=== PATIENT | female | born 1955 | race Caucasian/White ===

== ENCOUNTER → 2016-07-11 | Outpatient (CLI) | payer BC ==
--- NOTE | 2016-07-11 15:20 | BD ---
EXAMINATION TYPE: MG DEXA axial skeleton. DATE OF EXAM: 07/11/2016 3:07 PM COMPARISON: 03.17.2014 DEXA bone scan. CLINICAL HISTORY: M89.9 KNOWN OSTEOPENIA Height: 63 Weight: 141 FRAX RISK QUESTIONS: Alcohol (3 or more units per day): NO Family History (Parent hip fracture): NO Glucocorticoids (More than 3mos): NO (Ex: prednisone, prednisolone, methylprednisolone, dexamethasone, and hydrocortisone). History of Fracture in Adulthood: NO Secondary Osteoporosis: NO 1. Type 1 Diabetes: NO 2. Hyperthyroidism: NO 3. Menopause before 45: NO 4. Malnutrition: NO 5. Chronic liver disease: NO Rheumatoid Arthritis: NO Current Tobacco Use: NO RISK FACTORS HISTORY OF: Family History of Osteoporosis: YES MOTHER, Drink Alcohol: SOCIAL Active: YES Diet low in dairy products/other sources of calcium: NO Postmenopausal woman: YES AT AGE 49 Take estrogen and/or progesterone medications: NONE NOW Adrenal Insufficiency: NO MEDICATIONS: Additional Medications: CALCIUM AND VIT D, Additional History: NONE TO NOTE EXAM MEASUREMENTS: Bone mineral densitometry was performed using the [employer] System. Bone mineral density as measured about the Lumbar spine is: ----- L1-L4(G/cm2): 1.057 T Score Values are as follows: ----- L1: -1.3 ----- L2: -1.2 ----- L3: -0.7 ----- L4: -1.1 ----- L1-L4: -1.0 Bone mineral density has: Decreased -1.8% since study of: 03.17.2014 Bone mineral density about the R hip (g/cm2): 0.930 Bone mineral density about the L hip (g/cm2): 0.911 T Score values are as follows: -----R Neck: -0.8 -----L Neck: -0.9 -----R Intertrochanter: -0.8 -----L Intertrochanter: -1.3 Bone mineral density has: Decreased -0.6% since study of: 03.17.2014 FRAX %'S: 7.5% FOR MAJOR OSTEOPOROTIC FX AND 0.4% FOR HIP FX.....PROBABILITY OF FX IN 10 YRS TI ME IMPRESSION: Osteopenia (T Score between -2.5 and -1 as noted by T score values overall at 2 consecutive levels in the low back. Bone density fairly stable from prior. There is slightly increased risk of fracture an d the patient may be considered for treatment. Re-Screen 1-2 years. NOTE: T-SCORE=SD OF THE YOUNG ADULT MEAN.
--- NOTE | 2016-07-12 10:27 | MM ---
Reason for exam: screening (asymptomatic). Last mammogram was performed 1 year and 3 months ago. History: Patient is postmenopausal and is nulliparous. Family history of breast cancer in grandmother at age 80. Benign right US cyst aspiration of the right breast, October 06, 2008. Benign right US cyst aspiration ea add of the right breast, November 15, 2007. Benign right US cyst aspiration ea add of the right breast, November 15, 2007. Benign left US cyst aspiration of the left breast, November 15, 2007. Benign right US cyst aspiration of the right breast, November 15, 2007. Benign cyst aspiration of the right breast, June 28, 2006. Benign cyst aspiration of the right breast, June 01, 2005. Benign stereotactic core biopsy of the left breast, June 30, 2002. Benign cyst aspiration of the right breast, 1994. Took hormonal contraceptives for 13 years beginning at age 24. Physical Findings: A clinical breast exam by your physician is recommended on an annual basis and results should be correlated with mammographic findings. MG Screening Mammo w CAD Bilateral CC and MLO view(s) were taken. Prior study comparison: April 07, 2015, right breast MG 3d work up w/cad RT. April 05, 2015, bilateral MG screening mammo w CAD. The breast tissue is extremely dense which could obscure a lesion on mammography. Finding: There are typically benign calcifications in both breasts. Previous mammotome biopsy in the right and left breast. No significant changes in finding since April 07, 2015 and April 05, 2015. ASSESSMENT: Benign, BI-RAD 2 RECOMMENDATION: Routine screening mammogram of both breasts in 1 year.
== END | disposition home or self-care (01) ==
LOC: RADMAMWWP 14:28
PROVIDERS: ATTEND Obstetrics & Gynecology
DX: Z12.31 Encounter for screening mammogram for malignant neoplasm of breast (principal); M85.80 Other specified disorders of bone density and structure, unspecified site
CPT/HCPCS: 77080; G0202

== ENCOUNTER → 2017-08-02 | Outpatient (CLI) | payer BC ==
--- NOTE | 2017-08-03 11:11 | MM ---
Reason for exam: screening (asymptomatic). Last mammogram was performed 1 year and 1 month ago. History: Patient is postmenopausal and is nulliparous. Family history of breast cancer in grandmother at age 80. Benign right US cyst aspiration of the right breast, October 06, 2008. Benign right US cyst aspiration ea add of the right breast, November 15, 2007. Benign right US cyst aspiration ea add of the right breast, November 15, 2007. Benign left US cyst aspiration of the left breast, November 15, 2007. Benign right US cyst aspiration of the right breast, November 15, 2007. Benign cyst aspiration of the right breast, June 28, 2006. Benign cyst aspiration of the right breast, June 01, 2005. Benign stereotactic core biopsy of the left breast, June 30, 2002. Benign cyst aspiration of the right breast, 1994. Took hormonal contraceptives for 13 years beginning at age 24. Physical Findings: A clinical breast exam by your physician is recommended on an annual basis and results should be correlated with mammographic findings. MG Screening Mammo w CAD Bilateral CC and MLO view(s) were taken. Prior study comparison: July 11, 2016, bilateral MG screening mammo w CAD. April 07, 2015, right breast MG 3d work up w/cad RT. The breast tissue is heterogeneously dense. This may lower the sensitivity of mammography. Previous mammotome biopsy in the right breast x 2 and the left breast x 2. No significant changes when compared with prior studies. ASSESSMENT: Benign, BI-RAD 2 RECOMMENDATION: Routine screening mammogram of both breasts in 1 year.
== END ==
LOC: RADMAMWWP 12:28
PROVIDERS: ATTEND Obstetrics & Gynecology
DX: Z12.31 Encounter for screening mammogram for malignant neoplasm of breast (principal)
CPT/HCPCS: 77067

== ENCOUNTER → 2018-12-20 | Outpatient (CLI) | payer BC ==
--- NOTE | 2018-12-20 17:44 | BD ---
EXAMINATION TYPE: Axial Bone Density DATE OF EXAM: 12/20/2018 COMPARISON: NONE CLINICAL HISTORY: Height: Weight: FRAX RISK QUESTIONS: Alcohol (3 or more units per day): no Family History (Parent hip fracture): no Glucocorticoids (More than 3mos): no (Ex: prednisone, prednisolone, methylprednisolone, dexamethasone, and hydrocortisone). History of Fracture in Adulthood: no Secondary Osteoporosis: 1. Type 1 Diabetes: no 2. Hyperthyroidism: no 3. Menopause before 45: no 4. Malnutrition: no 5. Chronic liver disease: no Rheumatoid Arthritis: no Current Tobacco Use: no RISK FACTORS HISTORY OF: Family History of Osteoporosis: yes Active: yes Diet low in dairy products/other sources of calcium: no Postmenopausal woman: 49 years old MEDICATIONS: none Additional History: EXAM MEASUREMENTS: Bone mineral densitometry was performed using the [email or web address] System. Bone mineral density as measured about the Lumbar spine is: ----- L1-L4(G/cm2): 1.057 T Score Values are as follows: ----- L2: -0.8 ----- L3: -0.6 ----- L4: -1.3 ----- L1-L4: -1.0 Bone mineral density has: increased 0.5 % since study of: 07.11.2016 Bone mineral density about the R hip (g/cm2): 0.874 Bone mineral density about the L hip (g/cm2): 0.854 T Score values are as follows: -----R Neck: -1.2 -----L Neck: -1.3 -----R Total: -0.4 -----L Total: -0.8 Bone mineral density has: decreased -1.1 % since study of: 07.11.2016 IMPRESSION: Osteopenia (T Score between -2.5 and -1). There is slightly increased risk of fracture and the patient may be considered for treatment. Re-Screen 2-5 years. NOTE: T-SCORE=SD OF THE YOUNG ADULT MEAN.
--- NOTE | 2018-12-23 15:01 | MM ---
Reason for exam: screening (asymptomatic). Last mammogram was performed 1 year and 5 months ago. History: Patient is postmenopausal and is nulliparous. Family history of breast cancer in grandmother at age 80. Benign right US cyst aspiration of the right breast, October 06, 2008. Benign right US cyst aspiration ea add of the right breast, November 15, 2007. Benign right US cyst aspiration ea add of the right breast, November 15, 2007. Benign left US cyst aspiration of the left breast, November 15, 2007. Benign right US cyst aspiration of the right breast, November 15, 2007. Benign cyst aspiration of the right breast, June 28, 2006. Benign cyst aspiration of the right breast, June 01, 2005. Benign stereotactic core biopsy of the left breast, June 30, 2002. Benign cyst aspiration of the right breast, 1994. Took hormonal contraceptives for 13 years beginning at age 24. Physical Findings: A clinical breast exam by your physician is recommended on an annual basis and results should be correlated with mammographic findings. MG Screening Mammo w CAD Bilateral CC and MLO view(s) were taken. Prior study comparison: August 02, 2017, bilateral MG screening mammo w CAD. July 11, 2016, bilateral MG screening mammo w CAD. The breast tissue is heterogeneously dense. This may lower the sensitivity of mammography. Previous mammotome biopsy in the right and left breast. No significant changes when compared with prior studies. ASSESSMENT: Benign, BI-RAD 2 RECOMMENDATION: Routine screening mammogram of both breasts in 1 year.
== END | disposition home or self-care (01) ==
LOC: RADMAMWWP 12:46
PROVIDERS: ATTEND Obstetrics & Gynecology
DX: Z12.31 Encounter for screening mammogram for malignant neoplasm of breast (principal); M85.851 Other specified disorders of bone density and structure, right thigh; M85.852 Other specified disorders of bone density and structure, left thigh
CPT/HCPCS: 77067; 77080

== ENCOUNTER → 2020-02-10 | Outpatient (CLI) | payer MEDICARE, OTHER ==
--- NOTE | 2020-02-11 11:44 | MM ---
Reason for exam: screening (asymptomatic). Last mammogram was performed 1 year and 2 months ago. History: Patient is postmenopausal and is nulliparous. Family history of breast cancer in grandmother at age 80. Benign right US cyst aspiration of the right breast, October 06, 2008. Benign right US cyst aspiration ea add of the right breast, November 15, 2007. Benign right US cyst aspiration ea add of the right breast, November 15, 2007. Benign left US cyst aspiration of the left breast, November 15, 2007. Benign right US cyst aspiration of the right breast, November 15, 2007. Benign cyst aspiration of the right breast, June 28, 2006. Benign cyst aspiration of the right breast, June 01, 2005. Benign stereotactic core biopsy of the left breast, June 30, 2002. Benign cyst aspiration of the right breast, 1994. Took hormonal contraceptives for 13 years beginning at age 24. Physical Findings: A clinical breast exam by your physician is recommended on an annual basis and results should be correlated with mammographic findings. MG 3D Screening Mammo W/Cad Bilateral CC and MLO view(s) were taken. Prior study comparison: December 20, 2018, bilateral MG screening mammo w CAD. August 02, 2017, bilateral MG screening mammo w CAD. The breast tissue is extremely dense which could obscure a lesion on mammography. Stable benign calcifications. There is chronic nodularity bilaterally. No significant changes when compared with prior studies. ASSESSMENT: Benign, BI-RAD 2 RECOMMENDATION: Routine screening mammogram of both breasts in 1 year.
== END | disposition home or self-care (01) ==
LOC: RADMAMWWP 09:56
PROVIDERS: ATTEND Obstetrics & Gynecology
DX: Z12.31 Encounter for screening mammogram for malignant neoplasm of breast (principal); Z80.3 Family history of malignant neoplasm of breast
CPT/HCPCS: 77063; 77067

== ENCOUNTER → 2020-07-21 | Outpatient (CLI) | payer MEDICARE ==
--- NOTE | 2020-07-21 16:15 | NM ---
EXAMINATION TYPE: NM hepatobiliary w EF DATE OF EXAM: 07/21/2020 COMPARISON: NONE INDICATION: Reflux epigastric pain TECHNIQUE: After the intravenous administration of 4.88 mCi Tc 99m Mebrofenin hepatobiliary scintigra phy is performed. Images were obtained immediately post injection. FINDINGS: There is prompt uptake and excretion of radiotracer by the liver. Extrahepatic ducts are identified at 10 minutes. The gallbladder is visualized within 8 minutes. Small bowel activity is noted within 46 minutes. At one hour 8 ounces of oral ensure plus is given to mimic CCK and gallbladder ejection fraction is c alculated at 70 %, which is in the normal range. (Normal >35% and <80%.). IMPRESSION: 1. Normal hepatobiliary scan
== END | disposition home or self-care (01) ==
LOC: RADNMMAIN 06:48
PROVIDERS: ATTEND Family Medicine
DX: R10.11 Right upper quadrant pain (principal)
CPT/HCPCS: 78226; A9537

== ENCOUNTER → 2021-05-11 | Outpatient (CLI) | payer MEDICARE ==
--- NOTE | 2021-05-11 10:44 | BD ---
EXAMINATION TYPE: Axial Bone Density DATE OF EXAM: 05/11/2021 COMPARISON: Prior DEXA bone scan 2018 CLINICAL HISTORY: Postmenopausal female with osteopenia. Height: 63.5 Weight: 137.2 FRAX RISK QUESTIONS: Alcohol (3 or more units per day): no Family History (Parent hip fracture): no Glucocorticoids (More than 3mos): no (Ex: prednisone, prednisolone, methylprednisolone, dexamethasone, and hydrocortisone). History of Fracture in Adulthood: no Secondary Osteoporosis: 1. Type 1 Diabetes: no 2. Hyperthyroidism: no 3. Menopause before 45: no 4. Malnutrition: no 5. Chronic liver disease: no Rheumatoid Arthritis: no Current Tobacco Use: no RISK FACTORS HISTORY OF: Surgery to Spine/Hip(right/left)/Wrist (right/left): no Family History of Osteoporosis: yes Active: yes Diet low in dairy products/other sources of calcium: no Postmenopausal woman: yes Lost more than 2 inches in height since high school: no MEDICATIONS: none Additional History: EXAM MEASUREMENTS: Bone mineral densitometry was performed using the [place] System. Bone mineral density as measured about the Lumbar spine is: ----- L1-L4(G/cm2): 1.029 T Score Values are as follows: ----- L2: -1.4 ----- L3: -1.1 ----- L4: -1.2 ----- L1-L4: -1.3 Bone mineral density has: decreased -3.1 % since study of: 12.20.2018 Bone mineral density about the R hip (g/cm2): 0.864 Bone mineral density about the L hip (g/cm2): 0.865 T Score values are as follows: -----R Neck: -1.3 -----L Neck: -1.2 -----R Total: -0.5 -----L Total: -0.9 Bone mineral density has: decreased -1.3 % since study of: 12.20.2018 IMPRESSION: Osteopenia (T Score between -2.5 and -1) remains present. There remains slightly increased risk of fracture and the patient may be considered for treatment. Re-Screen 2-5 years. NOTE: T-SCORE=SD OF THE YOUNG ADULT MEAN.
--- NOTE | 2021-05-12 15:19 | MM ---
Reason for exam: screening (asymptomatic). Last mammogram was performed 1 year and 3 months ago. History: Patient is postmenopausal and is nulliparous. Family history of breast cancer in grandmother at age 80. Benign right US cyst aspiration of the right breast, October 06, 2008. Benign right US cyst aspiration ea add of the right breast, November 15, 2007. Benign right US cyst aspiration ea add of the right breast, November 15, 2007. Benign left US cyst aspiration of the left breast, November 15, 2007. Benign right US cyst aspiration of the right breast, November 15, 2007. Benign cyst aspiration of the right breast, June 28, 2006. Benign cyst aspiration of the right breast, June 01, 2005. Benign stereotactic core biopsy of the left breast, June 30, 2002. Benign cyst aspiration of the right breast, 1994. Took hormonal contraceptives for 13 years beginning at age 24. Physical Findings: A clinical breast exam by your physician is recommended on an annual basis and results should be correlated with mammographic findings. MG 3D Screening Mammo W/Cad Bilateral CC and MLO view(s) were taken. Prior study comparison: February 10, 2020, bilateral MG 3d screening mammo w/cad. December 20, 2018, bilateral MG screening mammo w CAD. The breast tissue is heterogeneously dense. This may lower the sensitivity of mammography. Finding #1: There is a 16mm and 14 mm obscured oval mass in the slight upper outer quadrant, posterior middle position. Finding #2: There are typically benign vascular, round calcifications in the right breast. Previous mammotome biopsy in the right breast x 3 and left breast. There is a chronic nodularity bilaterally. New finding and increase in size since February 10, 2020. ASSESSMENT: Incomplete: need additional imaging evaluation, BI-RAD 0 RECOMMENDATION: Ultrasound of the right breast. [facility] will attempt to contact patient to return for ultrasound.
== END | disposition home or self-care (01) ==
LOC: RADMAMWWP 08:55
PROVIDERS: ATTEND Obstetrics & Gynecology
DX: Z12.31 Encounter for screening mammogram for malignant neoplasm of breast (principal); Z13.820 Encounter for screening for osteoporosis; Z80.3 Family history of malignant neoplasm of breast; M85.80 Other specified disorders of bone density and structure, unspecified site; Z78.0 Asymptomatic menopausal state
CPT/HCPCS: 77063; 77067; 77080

== ENCOUNTER → 2021-05-23 | Outpatient (CLI) | payer MEDICARE ==
--- NOTE | 2021-05-23 09:16 | USB ---
Reason for exam: additional evaluation requested from abnormal screening. History: Patient is postmenopausal and is nulliparous. Family history of breast cancer in grandmother at age 80. Benign right US cyst aspiration of the right breast, October 06, 2008. Benign right US cyst aspiration ea add of the right breast, November 15, 2007. Benign right US cyst aspiration ea add of the right breast, November 15, 2007. Benign left US cyst aspiration of the left breast, November 15, 2007. Benign right US cyst aspiration of the right breast, November 15, 2007. Benign cyst aspiration of the right breast, June 28, 2006. Benign cyst aspiration of the right breast, June 01, 2005. Benign stereotactic core biopsy of the left breast, June 30, 2002. Benign cyst aspiration of the right breast, 1994. Took hormonal contraceptives for 13 years beginning at age 24. Physical Findings: Nurse Summary: palpable lump (nurse dw). US Breast Workup Limited RT Right limited breast ultrasound including focal area of concern, retroareolar and axilla demonstrates a 1.3 x 1.5 x 0.6cm oval, cystic lesion at 9 o'clock, a 1.7 x 1.6 x 0.8cm oval, cystic lesion at 10 o'clock and a 0.7 x 0.6 x 0.6cm oval, mixed lesion at 11 o'clock, likely debris filled cyst. These results were verbally communicated with the patient and result sheet given to the patient on 05/23/21. ASSESSMENT: Probably benign, BI-RAD 3 RECOMMENDATION: Follow-up diagnostic mammogram of the right breast in 6 months.
== END | disposition home or self-care (01) ==
LOC: RADUSWWP 08:10
PROVIDERS: ATTEND Obstetrics & Gynecology
DX: R92.8 Other abnormal and inconclusive findings on diagnostic imaging of breast (principal)

== ENCOUNTER → 2021-11-22 | Outpatient (CLI) | payer MEDICARE ==
--- NOTE | 2021-11-22 09:48 | MM ---
Reason for Exam: Follow-up at short interval from prior study. Last screening mammogram was performed 6 month(s) ago. Patient History: Menarche at age 14. Patient has no children. Postmenopausal. Hormonal Contraceptives for 13 years from age 24 until age 37. 06/28/2006, Benign Cyst Aspiration on the right side. 06/01/2005, Benign Cyst Aspiration on the right side. 1994, Benign Cyst Aspiration on the right side. 10/06/2008, Benign Cyst Aspiration on the right side. 11/15/2007, Benign Cyst Aspiration on the left side. 11/15/2007, Benign Cyst Aspiration on the right side. 11/15/2007, Benign Cyst Aspiration on the right side. 11/15/2007, Benign Cyst Aspiration on the right side. 06/30/2002, Benign Stereotactic Core Biopsy on the left side. Maternal grandmother had breast cancer, age 80. Risk Values: Edna 5 year model risk: 2.0%. NCI Lifetime model risk: 6.9%. Prior Study Comparison: 12/20/2018 Bilateral Screening Mammogram, [facility]. 02/10/2020 Bilateral Screening Mammogram, [facility]. 05/11/2021 Bilateral Screening Mammogram, [facility]. Tissue Density: Right: The breast tissue is heterogeneously dense. This may lower the sensitivity of mammography. Findings: Analyzed By CAD. Chronic nodularity in the right breast stable. Biopsy clip marker noted. There are benign-appearing calcifications. Overall Assessment: Benign, BI-RAD 2 Management: Screening Mammogram of both breasts in 6 months. A clinical breast exam by your physician is recommended on an annual basis and results should be correlated with mammographic findings. This exam should not preclude additional follow-up of suspicious palpable abnormalities. Results were given to the patient verbally at the time of exam. Electronically signed and approved by: Efrain Dockery M.D. Radiologis
== END | disposition home or self-care (01) ==
LOC: RADMAMWWP 09:20
PROVIDERS: ATTEND Obstetrics & Gynecology
DX: R92.8 Other abnormal and inconclusive findings on diagnostic imaging of breast (principal)
CPT/HCPCS: 77065; G0279; 77061

== ENCOUNTER → 2023-07-06 | Outpatient (CLI) | payer MEDICARE ==
--- NOTE | 2023-07-06 13:02 | BD ---
EXAMINATION TYPE: Axial Bone Density DATE OF EXAM: 07/06/2023 CLINICAL HISTORY: 68 years old Female. ICD-10 CODE: M85.88 OTHER DISORDER OF BONE DENSITY Height: 64 Weight: 138 FRAX RISK QUESTIONS: Alcohol (3 or more units per day): no Family History (Parent hip fracture): no Glucocorticoids (More than 3mos): no (Ex: prednisone, prednisolone, methylprednisolone, dexamethasone, and hydrocortisone). History of Fracture in Adulthood: no Secondary Osteoporosis: 1. Type 1 Diabetes: no 2. Hyperthyroidism: no 3. Menopause before 45: no 4. Malnutrition: no 5. Chronic liver disease: no Rheumatoid Arthritis: no Current Tobacco Use: no RISK FACTORS HISTORY OF: Surgery to Spine/Hip(right/left)/Wrist (right/left): no When: EXAM MEASUREMENTS: Bone mineral densitometry was performed using the [employer] System. Bone mineral density as measured about the Lumbar spine is: ----- L1-L4(G/cm2): 1.015 T Score Values are as follows: ----- L1: -1.5 ----- L2: -1.6 ----- L3: -1.1 ----- L4: -1.6 ----- L1-L4: -1.4 Z Score Values are as follows: ----- L1: 0.2 ----- L2: 0.1 ----- L3: 0.7 ----- L4: 0.2 ----- L1-L4: 0.4 Bone mineral density has: decreased -1.4 % since study of: 05.11.2021 Bone mineral density about the R hip (g/cm2): 0.926 Bone mineral density about the L hip (g/cm2): 0.861 T Score values are as follows: -----R Neck: -1.2 -----L Neck: -1.0 -----R Total: -0.6 -----L Total: -1.2 Z Score values are as follows: -----R Neck: 0.5 -----L Neck: 0.7 -----R Total: 0.8 -----L Total: 0.3 Bone mineral density has: decreased -3.3 % since study of: 1.12.2021 FRAX%s: The graph provided illustrates a 8.8% chance for a major osteoporotic fx and a 1.0% chance fo r the hips probability for fx in 10 years time. IMPRESSION: Osteopenia (T Score between -2.5 and -1). There is slightly increased risk of fracture and the patient may be considered for treatment. Re-Screen 2-5 years. NOTE: T-SCORE=SD OF THE YOUNG ADULT MEAN.
== END | disposition home or self-care (01) ==
LOC: RADMAMWWP 09:34
PROVIDERS: ATTEND Obstetrics & Gynecology
DX: M85.89 Other specified disorders of bone density and structure, multiple sites (principal)
CPT/HCPCS: 77063; 77067; 77080

== ENCOUNTER → 2024-08-06 | Outpatient (CLI) | payer MEDICARE ==
--- NOTE | 2024-08-06 13:38 | MM ---
Reason for Exam: Screening (asymptomatic). Last mammogram was performed 1 year(s) and 1 month(s) ago. Patient History: Menarche at age 14. Patient has no children. Postmenopausal. Hormonal Contraceptives for 13 years from age 24 until age 37. 06/28/2006, Benign Cyst Aspiration on the right side. 06/01/2005, Benign Cyst Aspiration on the right side. 1994, Benign Cyst Aspiration on the right side. 10/06/2008, Benign Cyst Aspiration on the right side. 11/15/2007, Benign Cyst Aspiration on the left side. 11/15/2007, Benign Cyst Aspiration on the right side. 11/15/2007, Benign Cyst Aspiration on the right side. 11/15/2007, Benign Cyst Aspiration on the right side. 06/30/2002, Benign Stereotactic Core Biopsy on the left side. Maternal grandmother had breast cancer, age 80. Risk Values: Edna 5 year model risk: 2.1%. NCI Lifetime model risk: 6.0%. Prior Study Comparison: 11/22/2021 Right MG 3D diag mammo w/cad RT, [facility]. 07/04/2022 Bilateral MG 3D screening mammo w/cad, [facility]. 07/06/2023 Bilateral MG 3D screening mammo w/cad, [facility]. Tissue Density: The breasts are heterogeneously dense, which may obscure small masses. Findings: Analyzed By CAD. 3 microclips right breast from prior biopsies. Previous areas of nodularity in the superior breast has improved. However, there is a new area of 9 mm isodense nodularity central right breast middle to posterior depth for which further evaluation is recommended. There are 2 microclips in the left breast. Otherwise, no significant change. Overall Assessment: Incomplete: need additional imaging evaluation, BI-RAD 0 Management: Special View Mammogram of the right breast. [facility] will attempt to contact patient to return for supplemental views and ultrasound if indicated. [facility], , 08/06/2024 1:35 PM. Electronically signed and approved by: Sallie Abrams M.D. Radiologist
== END | disposition home or self-care (01) ==
LOC: RADMAMWWP 10:55
PROVIDERS: ATTEND Family Medicine
DX: Z12.31 Encounter for screening mammogram for malignant neoplasm of breast (principal); R92.333 Mammographic heterogeneous density, bilateral breasts; Z78.0 Asymptomatic menopausal state; Z80.3 Family history of malignant neoplasm of breast; Z92.0 Personal history of contraception
CPT/HCPCS: 77063; 77067

== ENCOUNTER → 2024-08-08 | Outpatient (CLI) | payer MEDICARE ==
--- NOTE | 2024-08-08 08:54 | MM ---
Reason for Exam: Additional evaluation requested from abnormal screening. Last screening mammogram was performed less than 1 month ago. Patient History: Menarche at age 14. Patient has no children. Postmenopausal. Hormonal Contraceptives for 13 years from age 24 until age 37. 06/28/2006, Benign Cyst Aspiration on the right side. 1994, Benign Cyst Aspiration on the right side. 10/06/2008, Benign Cyst Aspiration on the right side. 11/15/2007, Benign Cyst Aspiration on the left side. 11/15/2007, Benign Cyst Aspiration on the right side. 11/15/2007, Benign Cyst Aspiration on the right side. 11/15/2007, Benign Cyst Aspiration on the right side. 06/30/2002, Benign Stereotactic Core Biopsy on the left side. Maternal grandmother had breast cancer, age 80. Risk Values: Edna 5 year model risk: 2.1%. NCI Lifetime model risk: 6.0%. Prior Study Comparison: 05/11/2021 Bilateral Screening Mammogram, [facility]. 05/23/2021 Right Diagnostic Ultrasound, [facility]. 11/22/2021 Right MG 3D diag mammo w/cad RT, [facility]. 07/04/2022 Bilateral MG 3D screening mammo w/cad, [facility]. 07/06/2023 Bilateral MG 3D screening mammo w/cad, [facility]. 08/06/2024 Bilateral MG 3D screening mammo w/cad, [facility]. Tissue Density: Right: The breasts are heterogeneously dense, which may obscure small masses. Findings: Analyzed By CAD. A 9 mm circumscribed isodense nodule persists central to the 3:00 position right breast middle depth on spot compression views. Given the density and circumscribed margins, there may be an underlying cyst here. Overall Assessment: Incomplete: need additional imaging evaluation, BI-RAD 0 Management: Diagnostic Breast Ultrasound of the right breast. [facility], , 08/08/2024 8:52 AM. Electronically signed and approved by: Sallie Abrams M.D. Radiologist
--- NOTE | 2024-08-08 09:34 | USB ---
Reason for Exam: Additional evaluation requested from abnormal screening. Patient History: Menarche at age 14. Patient has no children. Postmenopausal. Hormonal Contraceptives for 13 years from age 24 until age 37. 06/28/2006, Benign Cyst Aspiration on the right side. 06/01/2005, Benign Cyst Aspiration on the right side. 1994, Benign Cyst Aspiration on the right side. 10/06/2008, Benign Cyst Aspiration on the right side. 11/15/2007, Benign Cyst Aspiration on the left side. 11/15/2007, Benign Cyst Aspiration on the right side. 11/15/2007, Benign Cyst Aspiration on the right side. 11/15/2007, Benign Cyst Aspiration on the right side. 06/30/2002, Benign Stereotactic Core Biopsy on the left side. Maternal grandmother had breast cancer, age 80. Risk Values: Edna 5 year model risk: 2.1%. NCI Lifetime model risk: 6.0%. Technique: Method: Targeted. Doppler: Color. Patient Position: Supine. Prior Study Comparison: 07/04/2022 Bilateral MG 3D screening mammo w/cad, [facility]. 07/06/2023 Bilateral MG 3D screening mammo w/cad, [facility]. 08/06/2024 Bilateral MG 3D screening mammo w/cad, [facility]. Findings: The upper inner quadrant of the right breast, the axilla of the right breast and the retroareolar of the right breast were scanned. Targeted ultrasound to the 4:00 right breast including scanning of the subareolar region and axilla. At the 3:00 position, 1 cm from the nipple located at a posterior depth, there are 2 adjacent cysts measuring 1.0 cm and 0.5 cm. The larger of these likely corresponds to the mammographic finding. No other solid or cystic lesion or axillary adenopathy. Overall Assessment: Probably benign, BI-RAD 3 Management: Diagnostic Mammogram of the right breast in 6 months. A clinical breast exam by your physician is recommended on an annual basis and results should be correlated with mammographic findings. This exam should not preclude additional follow-up of suspicious palpable abnormalities. Results were given to the patient verbally at the time of exam. [facility], , 08/08/2024 9:29 AM. Electronically signed and approved by: Sallie Abrams M.D. Radiologist
== END | disposition home or self-care (01) ==
LOC: RADMAMWWP 08:25
PROVIDERS: ATTEND Family Medicine
DX: R92.8 Other abnormal and inconclusive findings on diagnostic imaging of breast (principal); R92.331 Mammographic heterogeneous density, right breast; Z78.0 Asymptomatic menopausal state; Z80.3 Family history of malignant neoplasm of breast; Z92.0 Personal history of contraception
CPT/HCPCS: 77065; 76642; G0279; 77061